=== PATIENT | female | born 1960 | race Caucasian/White ===

== ENCOUNTER 2017-06-13 09:14 | Emergency (ER) | payer OTHER ==
[2017-06-13 09:45] VITALS: BP 116/80
--- NOTE | 2017-06-13 10:16 | UC ---
Respiratory Complaint HPI - HPI Summary HPI Summary: Pt c/o of persistent cough X 5 weeks. Pt was treated with z-pac, tessalon perles, steroids, and codeine cough syrup. - History of Current Complaint Chief Complaint: UCRespiratory Stated Complaint: COUGH, CHAVA Time Seen by Provider: 06/13/17 10:06 Hx Obtained From: Patient ?: No Onset/Duration: Gradual Onset, Lasting Weeks, Still Present Timing: Intermittent Episodes Severity Initially: Mild Severity Currently: Mild Character: Cough: Productive Aggravating Factors: Deep Breaths, Recumbent Position Alleviating Factors: Nothing Associated Signs And Symptoms: Positive: Negative Related History: Seasonal Allergies - Allergies/Home Medications Allergies/Adverse Reactions: Allergies Allergy/AdvReac Type Severity Reaction Status Date / Time No Known Allergies Allergy Verified 06/13/17 09:37 PMH/Surg Hx/FS Hx/Imm Hx Previously Healthy: Yes - Surgical History Surgical History: Yes Surgery Procedure, Year, and Place: Appendectomy, 1974, [place]; Tonsillectomy , 1964, [place] - Family History Known Family History: Positive: Cardiac Disease - Social History Occupation: Employed Full-time Lives: With Family Alcohol Use: None Substance Use Type: None Smoking Status (MU): Never Smoked Tobacco Have You Smoked in the Last Year: No - Immunization History Most Recent Influenza Vaccination: Not the Season Vaccination Up to Date: No Review of Systems Constitutional: Negative Skin: Negative Eyes: Negative ENT: Negative Respiratory: Cough Cardiovascular: Negative Gastrointestinal: Negative Genitourinary: Negative Motor: Negative Neurovascular: Negative Musculoskeletal: Negative Neurological: Negative Psychological: Negative Is Patient Immunocompromised?: No All Other Systems Reviewed And Are Negative: Yes Physical Exam Triage Information Reviewed: Yes Appearance: Well-Appearing Vital Signs: Initial Vital Signs Temp 98.4 F 06/13/17 09:34 Pulse 90 06/13/17 09:34 Resp 20 06/13/17 09:34 BP 116/80 06/13/17 09:34 Pulse Ox 98 06/13/17 09:34 Vital Signs Reviewed: Yes Eye Exam: Normal ENT Exam: Normal Dental Exam: Normal Neck exam: Normal Respiratory Exam: Normal Cardiovascular Exam: Normal Musculoskeletal Exam: Normal Neurological Exam: Normal Psychological Exam: Normal Skin Exam: Normal UC Diagnostic Evaluation - Laboratory O2 Sat by Pulse Oximetry: 98 Respiratory Course/Dx - Differential Dx/Diagnosis Differential Diagnosis/HQI/PQRI: Bronchitis, Other - reactive airway Provider Diagnoses: reactive airway Discharge - Discharge Plan Condition: Stable Disposition: HOME Prescriptions: Benzonatate CAP* [Tessalon 100 MG CAP*] 100 mg PO Q8H PRN #30 cap PRN Reason: Cough methylPREDNISolone TAB* [Medrol TAB*] 4 - 8 mg PO .SEE JAZZY #1 jazzy Montelukast Sodium TAB* [Singulair TAB*] 10 mg PO BEDTIME #14 tab Patient Education Materials: Reactive Airways Disease (ED) Referrals: NOLAN Hodges [Primary Care Provider] - If Needed Chelsey Gonzalez MD [Medical Doctor] - As Soon As Possible
== END 2017-06-13 10:36 | disposition home or self-care (01) ==
LOC: UCCORT 09:14
DX: J45.909 Unspecified asthma, uncomplicated (principal)
CPT/HCPCS: 99212; G0463

== ENCOUNTER 2019-04-09 19:07 | Emergency (ER) | payer OTHER ==
[2019-04-09 20:55] VITALS: BP 169/80
[2019-04-09] MEDS ORDERED: NS 0.9% 1000 ML** 1,000 ML IV ONE (21:00)
[2019-04-09] MEDS ORDERED: Acetaminophen TAB* 325 MG PO ONE (21:05)
[2019-04-09 21:18] LABS: Influenza A Molecular NEGATIVE (Negative); Influenza B Molecular NEGATIVE (Negative)
--- NOTE | 2019-04-09 21:28 | UC ---
FLU HPI - HPI Summary HPI Summary: Pt presents with c/o fever, chills, body aches and generalized malaise X 2-3 days. Pt also c/o intermittent left flank pain that radiates to left side epigastric area. Pt denies pain at time of PE. Has hx of kidney stones, denies hx of GI disorder - History of Current Complaint Chief Complaint: UCGeneralIllness Stated Complaint: FEVER, COUGH, HIP PAIN Time Seen by Provider: 04/09/19 20:54 Hx Obtained From: Patient ?: No Onset/Duration: Sudden Onset, Lasting Days, Still Present Severity Currently: Mild Severity Initially: Moderate Pain Intensity: 0 Associated Signs & Symptoms: Positive: Fever, Myalgia Related Hx: Possible Flu/Infectious Exposure - Risk Factors Influenza Risk Factors: Negative - Allergy/Home Medications Allergies/Adverse Reactions: Allergies Allergy/AdvReac Type Severity Reaction Status Date / Time No Known Allergies Allergy Verified 04/09/19 20:55 Home Medications: Home Medications Ibuprofen TAB* [Advil TAB*] 600 mg PO ONCE 04/09/19 [History Confirmed 04/09/19] PMH/Surg Hx/FS Hx/Imm Hx Previously Healthy: Yes - Surgical History Surgical History: Yes Surgery Procedure, Year, and Place: Appendectomy, 1974, [place]; Tonsillectomy , 1964, [place]. tubal ligation 1999 - Family History Known Family History: Positive: Cardiac Disease - Social History Occupation: Employed Full-time Lives: With Family Alcohol Use: None Substance Use Type: None Smoking Status (MU): Never Smoked Tobacco Have You Smoked in the Last Year: No - Immunization History Most Recent Influenza Vaccination: Not the 2016/2017 Season Vaccination Up to Date: No Review of Systems All Other Systems Reviewed And Are Negative: Yes Constitutional: Positive: Fever, Chills, Fatigue Skin: Positive: Negative Eyes: Positive: Negative ENT: Positive: Negative Cardiovascular: Positive: Negative Gastrointestinal: Positive: Negative Genitourinary: Positive: Negative Motor: Positive: Negative Neurovascular: Positive: Negative Musculoskeletal: Positive: Myalgia Neurological: Positive: Negative Psychological: Positive: Negative Is Patient Immunocompromised?: No Physical Exam Triage Information Reviewed: Yes Appearance: Ill-Appearing Vital Signs: Initial Vital Signs Temp 101.6 F 04/09/19 20:50 Pulse 136 04/09/19 20:50 Resp 24 04/09/19 20:50 BP 169/80 04/09/19 20:50 Pulse Ox 97 04/09/19 20:50 Vital Signs Reviewed: Yes Eye Exam: Normal ENT Exam: Normal Dental Exam: Normal Neck exam: Normal Respiratory Exam: Normal Cardiovascular: Positive: Tachycardia - pt has hx of tachycardia . States she was taken off beta mery by canvas cutter and has hx of xenia valve prolapse Flu Course/Dx - Differential Dx/Diagnosis Differential Diagnosis/HQI/PQRI: Influenza Provider Diagnosis: Fever in adult, Left flank pain Discharge ED - Sign-Out/Discharge Documenting (check all that apply): Patient Departure All imaging exams completed and their final reports reviewed: No Studies - Discharge Plan Condition: Stable Disposition: HOME Patient Education Materials: Fever in Adults (ED), Tachycardia (ED) Referrals: Lane Gallardo PA [Primary Care Provider] - As Soon As Possible - Billing Disposition and Condition Condition: STABLE Disposition: Home
== END 2019-04-09 22:10 | disposition home or self-care (01) ==
LOC: UCCORT 19:07
DX: R50.9 Fever, unspecified (principal); R10.9 Unspecified abdominal pain; R53.81 Other malaise; R10.13 Epigastric pain; M79.10 Myalgia, unspecified site; R53.83 Other fatigue
CPT/HCPCS: 96360; 99212; A9270-GY; G0463